=== PATIENT | female | born 1990 | race Hispanic/Latino ===

== ENCOUNTER 2017-05-15 11:26 | Observation (INO) | payer MEDICAID | END 2017-05-15 12:48 | disposition home or self-care (01) | LOC: EDH 11:26 → LDH 11:44 | PROVIDERS: ADMIT Specialist; ATTEND Specialist | DX: O26.893 Other specified pregnancy related conditions, third trimester (principal); R10.9 Unspecified abdominal pain; Z3A.39 39 weeks gestation of pregnancy | CPT/HCPCS: 99285; G0378 ==

== ENCOUNTER → 2017-06-16 | Outpatient (CLI) | payer MEDICAID | END | disposition home or self-care (01) | LOC: RAH 14:18 | PROVIDERS: ATTEND Family Medicine | DX: M25.531 Pain in right wrist (principal) | CPT/HCPCS: 73110 ==

== ENCOUNTER 2020-06-17 21:49 | Inpatient (IN) | payer MEDICAID ==
[~2020-06-17] VITALS: Ht 157.5 cm; Wt 88.9 kg
[2020-06-17 22:51] LABS: HEMATOCRIT 32.1 % (36-48); MEAN CORPUSCULAR HEMOGLOBIN 27.6 pg (27.0-33.0); MEAN CORPUSCULAR HGB CONC 33.6 g/dL (32.0-36.0); MEAN CORPUSCULAR VOLUME 82.1 fL (79-99); RED BLOOD CELL COUNT(AUTO) 3.91 MIL/uL (4.00-5.50); RED CELL DISTRIBUTION WIDTH 13.9 % (11.0-15.5); WHITE BLOOD COUNT (AUTO) 6.8 K/uL (4.8-10.8)
[2020-06-17] MEDS ORDERED: BUTORPHANOL TARTRATE 2 MG/ML IVP PRN (23:00)
[2020-06-17] MEDS ORDERED: AMPICILLIN 2GM+NS 100ML 100 ML IV SCH (23:00)
[2020-06-17] MEDS ORDERED: EPHEDRINE SULFATE 50 MG/ML AMPULE IVP PRN (23:00)
[2020-06-17] MEDS ORDERED: NALOXONE HCL 0.4 MG/1 ML ML IV PRN (23:00)
[2020-06-17] MEDS ORDERED: LACTATED RINGERS 500 ML 500 ML IV PRN (23:00)
[2020-06-17 23:06] VITALS: BP 100/59
[2020-06-17] MEDS ORDERED: AMPICILLIN 2GM+NS 100ML 100 ML IV ONE (23:22)
[2020-06-17] MEDS: LACTATED RINGERS 1000ML 1,000 ML IV SCH (23:36)
[2020-06-18] MEDS: LACTATED RINGERS 1000ML 1,000 ML IV SCH (02:48)
[2020-06-18] MEDS: AMPICILLIN 1GM+NS 50ML 50 ML IV SCH ×2 (03:30→07:30)
[2020-06-18] MEDS ORDERED: OXYTOCIN-LR 20 UNITS/1000 ML 1,000 ML IV SCH ×2 (06:00→12:30)
[2020-06-18 09:55] LABS: RAPID PLASMA REAGIN NONREACTIVE (NONREACTIVE)
[2020-06-18] MEDS ORDERED: MEPERIDINE-PF 50 MG/ML SYG IVP PRN (10:30)
[2020-06-18] MEDS ORDERED: PROMETHAZINE HCL 25 MG/ML 1ML AMPULE IM PRN (10:30)
[2020-06-18] MEDS ORDERED: METHYLERGONOVINE MALEATE 0.2 MG/1 ML ML ONE (12:13)
[2020-06-18] MEDS ORDERED: ACETAMINOPHEN WITH CODEINE 1 TAB TAB PO PRN (12:30)
[2020-06-18] MEDS ORDERED: MEASLES/MUMPS/RUBELLA VACCINE, LIVE 0.5 ML/VIAL SQ PRN (12:30)
[2020-06-18] MEDS ORDERED: LANOLIN 30GM OINTMENT TP PRN (12:30)
[2020-06-18] MEDS ORDERED: ACETAMINOPHEN 325 MG TAB PO PRN (12:30)
[2020-06-18] MEDS ORDERED: BENZOCAINE/LANOLIN/ALOE VERA 60 ML AEROSOL TP PRN (12:30)
[2020-06-18] MEDS ORDERED: WITCH HAZEL 1 PAD TP PRN (12:30)
[2020-06-18] MEDS ORDERED: DIPH,PERTUSS(ACELL),TET VAC/PF 0.5 ML VIAL IM PRN (12:30)
[2020-06-18 15:11] VITALS: BP 107/66
[2020-06-18] MEDS ORDERED: PREN1TAB80 PO (15:26)
[2020-06-18] MEDS: IBUPROFEN 600 MG TABLET PO PRN (16:51)
[2020-06-18 20:10] VITALS: BP 87/53
[2020-06-18] MEDS: DOCUSATE SODIUM 100 MG CAP PO SCH (20:59)
[2020-06-19 07:26] VITALS: BP 105/71
[2020-06-19 08:14] LABS: HEPATITIS Bs ANTIGEN SCREEN P Negative (Negative)
[2020-06-19] MEDS: DOCUSATE SODIUM 100 MG CAP PO SCH (09:52)
[2020-06-19] MEDS: IBUPROFEN 600 MG TABLET PO PRN (09:52)
[2020-06-19 11:23] VITALS: BP 102/57
== END 2020-06-19 12:55 | disposition home or self-care (01) | DRG 560 ==
LOC: EDH 21:49 → LDH 21:50 → OBSVTOIN 21:50 → WSH 06-18 15:05
PROVIDERS: ADMIT Specialist; ATTEND Specialist
PROC: 10E0XZZ Delivery of Products of Conception, External Approach (ICD-10-PCS; principal; 2020-06-17)
PROC: 0UQMXZZ Repair Vulva, External Approach (ICD-10-PCS; 2020-06-17)
PROC: 3E0234Z Introduction of Serum, Toxoid and Vaccine into Muscle, Percutaneous Approach (ICD-10-PCS; 2020-06-17)
PROC: 3E0134Z Introduction of Serum, Toxoid and Vaccine into Subcutaneous Tissue, Percutaneous Approach (ICD-10-PCS; 2020-06-17)
DX: O71.82 Other specified trauma to perineum and vulva (principal); Z3A.37 37 weeks gestation of pregnancy; Z37.0 Single live birth; Z23 Encounter for immunization; Z91.040 Latex allergy status; Z91.018 Allergy to other foods
CPT/HCPCS: 36415; 76815; 85027; 86592; 86701; 86850; 86900; 86901; 87340; 87390; 90715; A4351; G0378; J0290; J2175; J2210; J2550; J2590; J7120

== ENCOUNTER → 2021-06-18 | Outpatient (CLI) | payer MEDICAID ==
[~2021-06-18] MED LIST: LACTATED RINGERS 1000ML 1,000 ML IV SCH; PREN1TAB80 PO
[2021-06-18 10:34] LABS: BASOPHILS % (AUTO) 0.7 % (0.0-5.0); HEMATOCRIT 37.5 % (36-48); LYMPHOCYTES % (AUTO) 50.4 % (21.0-51.0); MEAN CORPUSCULAR HEMOGLOBIN 27.9 pg (27.0-33.0); MEAN CORPUSCULAR HGB CONC 33.1 g/dL (32.0-36.0); MEAN CORPUSCULAR VOLUME 84.5 fL (79-99); MONOCYTES % (AUTO) 9.8 % (3.0-13.0); NEUTROPHILS % (AUTO) 37.8 % (40.0-77.0); PLATELET COUNT (AUTO) 325 K/uL (130-400); RED BLOOD CELL COUNT(AUTO) 4.44 MIL/uL (4.00-5.50); RED CELL DISTRIBUTION WIDTH 12.5 % (11.0-15.5); WHITE BLOOD COUNT (AUTO) 5.9 K/uL (4.8-10.8)
== END | disposition home or self-care (01) ==
LOC: EDSTATUS 09:00 → DAH 10:00
PROVIDERS: ATTEND Specialist
DX: Z01.818 Encounter for other preprocedural examination (principal); U07.1 COVID-19
CPT/HCPCS: 36415; 84703; 85025; 86850; 86900; 86901; 87635; A6260; C9803

== ENCOUNTER 2021-07-08 07:03 | Day surgery (SDC) | payer MEDICAID ==
[2021-07-02 11:56] LABS: EOSINOPHILS % (AUTO) 2.7 % (0.0-8.0); LYMPHOCYTES % (AUTO) 38.9 % (21.0-51.0); MEAN CORPUSCULAR VOLUME 84.9 fL (79-99); MONOCYTES % (AUTO) 9.2 % (3.0-13.0); PLATELET COUNT (AUTO) 299 K/uL (130-400); RED BLOOD CELL COUNT(AUTO) 4.71 MIL/uL (4.00-5.50); RED CELL DISTRIBUTION WIDTH 12.3 % (11.0-15.5); WHITE BLOOD COUNT (AUTO) 4.1 K/uL (4.8-10.8)
[2021-07-07 09:58] VITALS: BP 103/62
[2021-07-08] VITALS (14 sets, daily range): BP systolic 90–114; BP diastolic 50–73
[~2021-07-08] VITALS: Ht 157.5 cm; Wt 75.7 kg
[2021-07-08] MEDS ORDERED: LACTATED RINGERS 1000ML 1,000 ML IV SCH (08:00)
[2021-07-08] MEDS ORDERED: SUCCINYLCHOLINE CHLORIDE 20 MG/ML 10 ML VIAL ONE (08:22)
[2021-07-08] MEDS ORDERED: LIDOCAINE PF 100MG/5ML (2%) SYRINGE 5ML ONE (08:22)
[2021-07-08] MEDS ORDERED: MIDAZOLAM HCL 1 MG/ML 2ML VIAL ONE (08:23)
[2021-07-08] MEDS ORDERED: PROPOFOL 10 MG/ML 20ML VIAL IV ONE (08:23)
[2021-07-08] MEDS ORDERED: ROCURONIUM 10MG/1ML SYR 10 MG/ML ML ONE (08:23)
[2021-07-08] MEDS ORDERED: FENTANYL CITRATE PF 50 MCG/1 ML 2ML VIAL ONE (08:23)
[2021-07-08] MEDS ORDERED: ONDANSETRON 4MG INJ ONE ×2 (08:26→09:34)
[2021-07-08] MEDS ORDERED: GLYCOPYRROLATE 1 MG/5 ML SYRINGE ONE (08:38)
[2021-07-08] MEDS ORDERED: PHENYLEPHRINE HCL 10 MG/ML 1ML VIAL IV ONE (08:40)
[2021-07-08] MEDS ORDERED: DEXAMETHASONE SOD PHOSPHATE 4 MG/ML 1ML VIAL ONE (08:55)
[2021-07-08] MEDS ORDERED: MEPERIDINE-PF 25 MG/ML SYG ONE (09:34)
== END 2021-07-08 10:54 | disposition home or self-care (01) ==
LOC: DAH 07:03
PROVIDERS: ATTEND Specialist
DX: Z30.2 Encounter for sterilization (principal); Z20.822 Contact with and (suspected) exposure to COVID-19
CPT/HCPCS: 36415 ×2; 58671; 84703; 85025; 86850 ×2; 86900 ×2; 86901 ×2; 87635; A4215 ×3; A4216; A4221; A4222; A4223; A4351; A4663; A4930; A6260; C1769 ×3; C9803; J0330; J1100; J2175; J2250; J2370; J2405 ×2; J3010; J3490 ×3; J7030; J7120; J2001; J2704

== ENCOUNTER → 2022-03-22 | Outpatient (CLI) | payer MEDICAID | END | disposition home or self-care (01) | LOC: RAH 11:05 | PROVIDERS: ATTEND Family Medicine | DX: R55 Syncope and collapse (principal) | CPT/HCPCS: 70544 ==